=== PATIENT | female | born 1940 | race African-American/Black ===

== ENCOUNTER 2020-01-12 11:23 | Inpatient (IN) | payer OTHER ==
[~2020-01-12] VITALS: Ht 162.6 cm; Wt 78.0 kg
[2020-01-12 11:23] VITALS: BP 135/71
[~2020-01-12 11:23] MED LIST: COMBIVENT IN; FLOVENT IN; LISINOPRIL20 MG PO; LISINOPRIL40 MG; MEDROL4 MG PO; NICOTINE TRANSD21 M1; PEPCID AC20 M1; PREDNISOLONE 5 M5 M1; SINGULAIR 10 MG10 M1 PO; SPIRIVA; THEO-DUR200 MG
[2020-01-12 12:00] LABS: ABSOLUTE NEUTROPHILS 6.1 thou/uL (1.4-8.2); BASOPHILS 0.5 % (0.0-2.0); EOSINOPHILS 3.7 % (0.0-3.0); HEMATOCRIT 40.2 % (37.0-47.0); HEMOGLOBIN 13.1 gm/dL (12.0-15.0); LYMPHOCYTES 22.5 % (24.0-44.0); MCH 28.2 pg (26.0-34.0); MCHC 32.5 g/dL (28.0-37.0); MCV 86.7 fL (80.0-100.0); MONOCYTES 7.4 % (1.0-8.0); PLATELET COUNT 256 thou/uL (150-400); POLYS 65.9 % (36.0-66.0); RBC 4.64 mil/uL (4.20-5.00); RDW 14.4 % (10.5-14.5); WBC 9.2 thou/uL (4.0-11.0)
[2020-01-12 12:07] LABS: ANION GAP 7 mmol/L (7-16); BUN 15 mg/dL (7-18); CALCIUM 8.9 mg/dL (8.5-10.1); CHLORIDE 101 mmol/L (98-107); CO2 28 mmol/L (21-32); CREATININE 1.1 mg/dL (0.6-1.0); GLUCOSE 113 mg/dL (74-106); POTASSIUM 3.8 mmol/L (3.5-5.1); SODIUM 136 mmol/L (136-145)
[2020-01-12 12:17] LABS: ALBUMIN 3.7 g/dL (3.4-5.0); SGOT 20 U/L (15-37); SGPT 23 U/L (30-65); TOTAL BILIRUBIN 0.4 mg/dL (0.2-1.0); TOTAL PROTEIN 7.5 g/dL (6.4-8.2); TROPONIN-I <0.06 ng/mL (<0.06)
[2020-01-12 14:00] LABS: APTT 29.2 Seconds (24.5-32.8)
--- NOTE | 2020-01-12 14:22 | EKG ---
[facility] Rosario Finney [facility] [place] [address] ELECTROCARDIOGRAM REPORT Name: JOSH MARTINSINE Room #: [facility]#: [id number] Admission: 01/12/20 Attend Phys: Discharge: Date of : 40 Report #: [id number] THIS REPORT FOR: cc: Oralia Torres MD, Veronica A. 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1940 Requested By: Ibrahima Martinez Order Number: [id number] : Beltran Conrad Measurements Intervals [place] Rate: 71 P: 54 NC: 146 QRS: -14 QRSD: 82 T: 48 QT: 438 QTc: 476 Interpretive Statements Sinus rhythm Left atrial enlargement Inferior infarct, old Probable anteroseptal infarct, old Compared to ECG 08/13/2010 13:20:56 Sinus tachycardia no longer present Myocardial infarct finding still present Electronically Signed On 01-12-2020 14:22:26 CDT by Beltran Conrad [email or web address] <ELECTRONICALLY SIGNED> By: Beltran Conrad MD 01/12/20 1422 1126 [id number] Beltran Conrad MD /EPI
[2020-01-12] MEDS ORDERED: PROAIR HFA8.5 GM INH (15:19)
[2020-01-12] MEDS ORDERED: LANTUS100 UNIT/M SUBQ (15:19)
[2020-01-12] MEDS ORDERED: ALBUTEROL0.63 MG/3 INH (15:19)
[2020-01-12] MEDS ORDERED: NOVOLOG100 UNIT/M SUBQ (15:19)
[2020-01-12] MEDS ORDERED: EZALLOR SPRINKL20 MG PO (15:20)
[2020-01-12] MEDS ORDERED: COZAAR 25 MG TA25 MG PO (15:20)
[2020-01-12] MEDS ORDERED: METAMUCIL0.4 GM PO (15:21)
[2020-01-12] MEDS ORDERED: TRAMADOL100 MG PO (15:21)
[2020-01-12] MEDS ORDERED: FISH OIL 1,0001 EAC9 PO (15:22)
[2020-01-12 18:21] VITALS: BP 148/69
[2020-01-12 19:23] VITALS: BP 124/72; BP 136/67
[2020-01-13] VITALS (8 sets, daily range): BP systolic 131–174; BP diastolic 69–88
--- NOTE | 2020-01-13 03:18 | NUR ---
RECIEVED PT FROM ED . PT ALERT AND ORIENTED , DISCUSSED PLAN OF CARE AND COMPLETED DATA BASE AND ASSESSMENT. TALK WITH DAUGHTER WHO DPOA AND OBTAINED HISTORY. 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 HS SNACK GIVEN AND PT REQUESTED MEDICTION SHOULDER . PT HAS RESTED WELL THROUGHOUT HOURLY ROUNDS, WILL CONITINUE WITH CURRENT PLAN A OF CARE.
[2020-01-13 06:33] LABS: ABSOLUTE NEUTROPHILS 5.7 thou/uL (1.4-8.2); BASOPHILS 0.3 % (0.0-2.0); EOSINOPHILS 1.9 % (0.0-3.0); HEMATOCRIT 39.5 % (37.0-47.0); HEMOGLOBIN 12.6 gm/dL (12.0-15.0); LYMPHOCYTES 22.9 % (24.0-44.0); MCH 27.7 pg (26.0-34.0); MCHC 31.9 g/dL (28.0-37.0); MCV 86.8 fL (80.0-100.0); MONOCYTES 7.4 % (1.0-8.0); PLATELET COUNT 247 thou/uL (150-400); POLYS 67.5 % (36.0-66.0); RBC 4.55 mil/uL (4.20-5.00); RDW 14.2 % (10.5-14.5); WBC 8.5 thou/uL (4.0-11.0)
[2020-01-13 07:00] LABS: CHOLESTEROL 109 mg/dL (<200); HDL CHOLESTEROL 53 mg/dL (>40); LDL CHOLESTEROL 38 mg/dL (<100); TC:HDL 2.1 Ratio (Not establshd); TRIGLYCERIDE 91 mg/dL (<150); VLDL 18 mg/dL (<40)
[2020-01-13 07:02] LABS: ANION GAP 5 mmol/L (7-16); BUN 13 mg/dL (7-18); CALCIUM 8.6 mg/dL (8.5-10.1); CHLORIDE 101 mmol/L (98-107); CO2 31 mmol/L (21-32); CREATININE 1.2 mg/dL (0.6-1.0); GLUCOSE 103 mg/dL (74-106); POTASSIUM 3.8 mmol/L (3.5-5.1); SODIUM 137 mmol/L (136-145); TROPONIN-I <0.06 ng/mL (<0.06)
--- NOTE | 2020-01-13 17:41 | NUR ---
INITIAL ASSESSMENT: CHEN reviewed chart and spoke with nursing. Pt was admitted from home due to chest pain. Pt is currently in Enhanced Isolation to r/o COVID-19. Results pending at this time. Pt is afebrile and on room air. Cardiology consulted. SW spoke with pt via phone. Introduced role of SW. Pt appears to be alert/orientated. Pt reports she lives at home with her dtr and her oldest son. Prior to admission, pt was independent with ADLs. Pt uses a cane to assist with ambulation outside of her home. No steps to navigate at home. Pt has good family support. Pt has used HH in the past, but unsure of the provider. No hx of post-acute placement. Pt's PCP is Dr. Oralia Torres in [facility]. CHEN spoke with pt's dtr, Noris, via phone to provide update and confirm discharge plan is to return home. Pt would benefit from PT/OT evals when able to participate to assist with recommendation for discharge needs. CHEN is following to assist as needed with discharge planning.
--- NOTE | 2020-01-13 19:31 | NUR ---
PT HAS DENIED CHEST PAIN THIS SHIFT...SHE HAS REPORTED CONCEPCIÓN LT SHOULDER PAIN THAT IS CHRONIC AND ACHIEVED GOOD RELIEF WITH TRAMADOL...
--- NOTE | 2020-01-14 04:35 | NUR ---
COMPLAINED THAT HER TRAMADOL IS ONLY MINIMALLY HELPING. I RECIEVED AN ORDER FOR LIDOCAINE PATCH TO PUT TO AFFECTED AREA (RT SHOULDER). SHE HAS BEEN RESTING SINCE APPLICATION. CAREPLAN REVIWED. RESTING TONIGHT. AWAITING RESULTS OF COVID TEST.
[2020-01-14 04:49] VITALS: BP 141/85
[2020-01-14 07:25] VITALS: BP 158/81
[2020-01-14 11:00] VITALS: BP 145/95
--- NOTE | 2020-01-14 12:29 | 2DMMODE ---
[facility] [place] [address] 2 D/M-MODE ECHOCARDIOGRAM Name: ELENITA MARTINS Room #: 359-P ADM IN M.R.#: [id number] Admission: 01/13/20 Attend Phys: Jose Rodrigues MD Discharge: Date of : 40 Report #: [id number] THIS REPORT FOR: cc: Oralia Torres MD, Veronica A. MD Park, Jin S. MD ~ APPROVED REPORT Study performed: 01/14/2020 11:36:58 EXAM: Comprehensive 2D, Doppler, and color-flow Echocardiogram Patient Location: Bedside Room #: 359 Status: routine BSA: 1.83 HR: 73 bpm BP: 145/95 mmHg Rhythm: NSR Other Information Study Quality: Adequate Indications Chest Pain Hx: COPD, PVD, HTN, HLP, DM. 2D Dimensions RVDd: 31.63 mm IVSd: 12.00 (7-11mm) LVOT Diam: 19.81 (18-24mm) LVDd: 37.26 mm PWd: 12.20 (7-11mm) Ascending Ao: 30.71 (22-36mm) LVDs: 23.61 (25-40mm) Aortic Root: 31.63 mm Volumes Left Atrial Volume (Systole) Single Plane 4CH: 39.17 mL Single Plane 2CH: 34.94 mL LA ESV Index: 21.00 mL/m2 Aortic Valve AoV Peak Nawaf.: 1.59 m/s AO Peak Gr.: 10.06 mmHg LVOT Max P.80 mmHg LVOT Max V: 1.20 m/s ANJELICA Vmax: 2.34 cm2 [facility] [address] [address] 2 D/M-MODE ECHOCARDIOGRAM Name: ELENITA MARTINS Room #: 359-P [facility] IN [facility].#: [id number] Admission: 01/13/20 Attend Phys: Jose Rodrigues, Discharge: Date of : 40 Report #: [id number] Mitral Valve E/A Ratio: 0.6 MV Decel. Time: 402.79 ms MV E Max Nawaf.: 0.77 m/s MV A Nawaf.: 1.28 m/s MV PHT: 116.81 ms IVRT: 62.28 ms Pulmonary Valve PV Peak Nawaf.: 0.94 m/s PV Peak Gr.: 3.53 mmHg Pulmonary Vein P Vein S: 0.66 m/s P Vein A: 0.31 m/s P Vein D: 0.37 m/s P Vein A Dur.: 96.9 msec P Vein S/D Ratio: 1.78 Tricuspid Valve TR Peak Nawaf.: 2.76 m/s RAP Estimate: 5.00 mmHg TR Peak Gr.: 30.44 mmHg PA Pressure: 35.00 mmHg Left Ventricle The left ventricle is normal size. There is normal LV segmental wall motion. Mild concentric left ventricular hypertrophy. Left ventricular systolic function is normal. LVEF is 65%. Mild diastolic dysfunction is present (impaired relaxation pattern). Right Ventricle The right ventricle is normal size. The right ventricular systolic function is normal. Atria The left atrium size is normal. The right atrium size is normal. Aortic Valve Aortic valve leaflets are not well visualized. No aortic regurgitation is present. There is no aortic valvular stenosis. Mitral Valve Mitral valve leaflets are mildly thickened. Moderate mitral annular calcification. There is no mitral valve regurgitation noted. No evidence of mitral valve stenosis. [facility] [address] [place] [address] 2 D/M-MODE ECHOCARDIOGRAM Name: ELENITA MARITNS Room #: 359-P [facility] IN .R.#: [id number] Admission: 01/13/20 Attend Phys: Jose Rodrigues, Discharge: Date of : 40 Report #: [id number] Tricuspid Valve The tricuspid valve is normal in structure. Trace tricuspid regurgitation. Estimated PAP is 35mmHg. Pulmonic Valve Pulmonic valve is not well visualized. Trace pulmonic regurgitation. Great Vessels The aortic root is normal in size. The ascending aorta is normal in size. IVC is normal in size and collapses >50% with inspiration. Pericardium There is no pericardial effusion. <Conclusion> The left ventricle is normal size. Mild concentric left ventricular hypertrophy. Left ventricular systolic function is normal. Mild diastolic dysfunction is present (impaired relaxation pattern). The right ventricle is normal size. The left atrium size is normal. Aortic valve leaflets are not well visualized. Moderate mitral annular calcification. Trace tricuspid regurgitation. Estimated PAP is 35mmHg. <ELECTRONICALLY SIGNED> By: Mal Rubio MD 01/14/20 1229 1229 1229 Mal Rubio MD /INF
[2020-01-14 14:43] VITALS: BP 145/95
--- NOTE | 2020-01-14 14:59 | NUR ---
ASSUMED PATIENT CARE AT 0700. A/0 X4. DENIES PAIN. PATIENT WANTS GO HOME. DAUGHTER WILL PICK HER UP. COVID TEST NEGATIVE.
--- NOTE | 2020-01-14 16:05 | NUR ---
DISCHARGE NOTE: SW reviewed chart and spoke with nursing and attending physician. Pt in Enhanced Isolation to r/o COVID-19. Pt's test is negative. SW received call from pt's dtr, Noris, stating that she is wanting to know when pt will have her planned cardiac tests completed. SW explained that testing was delayed due to the COVID results not being available yesterday. Pt's dtr requesting to speak with physician to discuss the plan of care. SW contacted attending physician and provided Noris's contact info . Physician spoke with pt's family. Pt to discharge home today. Family to provide transportation home. No additional SW needs identified at this time, but is available to assist should needs arise.
== END 2020-01-14 15:48 | disposition home or self-care (01) | DRG 301 ==
LOC: ER 11:23 → EROBS 15:56 → 3W 15:56 → ER 15:56 → 3W 15:56 → EROBS 19:54 → 3W 01-13 16:33 → EROBS 01-13 16:33 → 3W 01-14 15:48
PROVIDERS: Emergency Medicine; Nurse Practitioner; ADMIT Internal Medicine; ATTEND Internal Medicine
DX: E11.51 Type 2 diabetes mellitus with diabetic peripheral angiopathy without gangrene (principal); N19 Unspecified kidney failure; R91.8 Other nonspecific abnormal finding of lung field; E78.5 Hyperlipidemia, unspecified; J43.9 Emphysema, unspecified; Z85.43 Personal history of malignant neoplasm of ovary; Z87.891 Personal history of nicotine dependence; Z90.711 Acquired absence of uterus with remaining cervical stump; Z79.899 Other long term (current) drug therapy; Z79.4 Long term (current) use of insulin; Z88.5 Allergy status to narcotic agent; Z88.8 Allergy status to other drugs, medicaments and biological substances; Z98.42 Cataract extraction status, left eye; Z98.41 Cataract extraction status, right eye; Z90.49 Acquired absence of other specified parts of digestive tract; Z79.01 Long term (current) use of anticoagulants; Z03.818 Encounter for observation for suspected exposure to other biological agents ruled out; R09.1 Pleurisy
CPT/HCPCS: 10879